=== PATIENT | female | born 1945 | race Caucasian/White ===

== ENCOUNTER → 2024-08-14 | Outpatient (CLI) | payer MEDICARE, SELFPAY ==
--- NOTE | 2024-08-14 14:30 | CT_ITS ---
PROCEDURE: EXTREMITY UPPER WITHOUT CONTRA REASON FOR EXAM: Preop planning for right shoulder replacement. TECHNIQUE: CT without intravenous contrast. Multiple axial tomographic images of the right shoulder were obtained. Sagittal and coronal reconstruction was obtained as well. COMPARISON: None. FINDINGS: Bones: No evidence of fracture. Deformity of the proximal humerus with degenerative spur formation. Joints: Marked degree of osteoarthritis of the glenohumeral joint with osteophyte formation. Decreased distance between the head of the humerus and the acromion in keeping with rotator cuff pathology. Subchondral cysts are seen in the glenoid as well as in the humeral head. Soft Tissues: There is soft tissue prominence surrounding the glenohumeral joint. This may represent either a large joint effusion versus possible synovitis. 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 Soft tissu e prominence surrounding the shoulder joint. This may represent either large joint effusion versus polycystic of itis. One or more dose reduction techniques were used (e.g., Automated exposure contr ol, adjustment of the mA and/or kV according to patient size, use of iterative reconstruction technique). Reading Location: [facility]
== END | disposition home or self-care (01) ==
LOC: CT 14:26
PROVIDERS: PCP Family Medicine; Referring Provider Student in an Organized Health Care Education/Training Program; Visit Provider Student in an Organized Health Care Education/Training Program
DX: M19.011 Primary osteoarthritis, right shoulder (principal); M25.411 Effusion, right shoulder
CPT/HCPCS: 73200

== ENCOUNTER 2024-09-04 09:12 | Day surgery (SDC) | payer MEDICARE, SELFPAY ==
--- NOTE | 2024-08-14 15:13 | EKG12_ITS ---
Test Reason : PRE OP Blood Pressure : */* mmHG Vent. Rate : 80 BPM Atrial Rate : 80 BPM P-R Int : 142 ms QRS Dur : 88 ms QT Int : 368 ms P-R-T Axes : 9 3 21 degrees QTcB Int : 424 ms Normal sinus rhythm Minimal voltage criteria for LVH, may be normal variant Anterior infarct , age undetermined Abnormal ECG Confirmed by JORGE RUBIO, HALEIGH ([id number]), editor at large GEORGE PARIKH ([id number]) on 08/15/2024 9:02:15 AM Referred By: Hernan Olmstead Confirmed By: HALEIGH PATEL MD
[2024-08-14 16:16] LABS: Absolute Lymphocyte Count 0.82 X10^3/uL (0.83-4.51); Absolute Neutrophil Count 5.5 X10^3/uL (2.0-7.7); Basophil# 0.05 X10^3/uL; Basophil% 0.6 % (0-1); Eosinophil# 0.52 X10^3/uL; Eosinophils% 6.7 % (0-5); Hematocrit 36.7 % (37-47); Hemoglobin 11.6 g/dL (12.0-15.0); Lymphocyte # 0.82 X10^3/ul (0.83-4.51); Lymphocyte % 10.6 % (19-41); Mean Corp Hgb Conc 31.6 g/dL (32-36); Mean Corpuscular Hgb 29.4 pg (27.0-32.0); Mean Corpuscular Volume 92.9 fL (81-99); Mean Platelet Vol. 8.8 fl (6.2-12.0); Monocyte# 0.85 X10^3/uL; NRBC Flagged by Analyzer 0 % (0-5); Neutrophil # 5.49 X10^3/uL (2.7-7.7); Neutrophil % 70.8 % (47-70); Platelet Count 228 K/mm3 (150-450); RBC Distribution Width CV 12.6 % (11.6-14.6); RBC Distribution Width SD 43.4 fl (35.1-43.9); Red Blood Count 3.95 M/mm3 (4.2-5.4); White Blood Count 7.8 K/mm3 (4.4-11.0)
[2024-08-14 16:48] LABS: Anion Gap 5 (5-15); BUN 18 mg/dL (7-18); BUN/Creat Ratio 28.8 RATIO (10-20); Chloride 106 mmol/L (98-107); Creatinine, Serum 0.62 mg/dL (0.55-1.02); EST Glomerular Filtration Rate 98 mL/min (>60); Est Glom Filt Rate - Afr Amer 119 mL/min (>60); Glucose 116 mg/dL (74-106); Potassium 3.9 mmol/L (3.5-5.1); Sodium Level 137 mmol/L (136-145)
[2024-08-14 17:00] LABS: Hemoglobin A1c 4.3 % (3.8-5.6)
[2024-08-14 20:07] LABS: Magnesium 2.2 mg/dL (1.6-2.6)
--- NOTE | 2024-08-15 17:36 | PAT.ANE_ITS ---
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 When Was Last Pacemaker Check QUESTION #4 FULL TEXT: You/Your Family Experience fever (hyperthermia) with Anesthesia Last Oral Intake Last Oral intake: Last Oral Intake NPO since Meds taken in AM with sips of water? 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 - combination saw operator: PONV - combination saw operator Female Yes 08/09/24 13:05 HX of Motion Sickness No 08/09/24 13:05 HX of N/V After Surgery No 08/09/24 13:05 Non-Smoker Yes 08/09/24 13:05 Duration of Surgery greater Yes 08/09/24 13:05 than 60 minutes Number of Risk Factors 3 08/09/24 13:05 PONV Score Moderate Risk 08/09/24 13:05 Respiratory Assessment Respiratory Assessment - combination saw operator: Respiratory Tract Infection Hx - combination saw operator Hx Respiratory Tract Infection No 08/09/24 13:05 STOP Sleep Apnea STOP Sleep Apnea - combination saw operator: STOP Sleep Apnea - combination saw operator Hx Hypertension No 08/09/24 13:05 Hx Sleep Apnea No 08/09/24 13:05 CPAP BIPAP Do you snore loudly (louder No 08/09/24 13:05 than talking or can be heard Do you often feel tired/ No 08/09/24 13:05 fatigued/ sleepy during daytime? Has anyone observed you stop No 08/09/24 13:05 breathing during sleep? STOP Results Negative 08/09/24 13:05 QUESTION #5 FULL TEXT : Do you snore loudly (louder than talking or can be heard through closed doors)? 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 Specify any problems Hx of Preganancy in last 3 No 08/09/24 13:05 Months Nurse Filling Out Transfusion DSCHRIBER 08/09/24 13:05 & Questions: Date: 08/09/24 08/09/24 13:05 Time: 13:13 08/09/24 13:05 Patient unable to answer at this time (ie. confused, unrespo /Reproduction History /Reproductive History - combination saw operator: /Reproductive Hx- combination saw operator Hx Now No 08/09/24 13:05 Gestational Age (in weeks): EDC: Hx Hx Para Hx Section SAB No 08/09/24 13:05 PFSH Medical History (Updated 08/09/24 @ 13:19 by Elizabeth Blair) Loss of hearing Wears dentures Post-menopausal Arthritis Non-smoker Hx of fracture of leg Home Medications ?Medication ?Instructions ?Recorded ?Last Taken ?Type calcium carbonate 600 mg PO DAILY 08/09/24 Unk nown History cyanocobalamin (vitamin B-12) 1,000 mcg PO DAILY 08/09 Unknown History 1,000 mcg tablet (Vitamin B-12) glucosamine sulfate 500 mg tablet 500 mg PO DAILY 07/13 04/05 Unknown History (Glucosamine) ibuprofen 400 mg tablet 400 mg PO Q8H 08/09/24 Unkno wn History magnesium 250 mg tablet 250 mg PO DAILY 08/09/24 Unk nown History zinc gluconate 50 mg tablet 50 mg PO DAILY 08/09/24 Un known History Allergy/AdvReac Type Severity Reaction Status Date / Time No Known Allergies Allergy Verified 08/09/24 12:59 Surgical History (Updated 08/09/24 @ 13:19 by Elizabeth Blair) History of Social History Smoking Status: Never smoker Audit: Pertinent Findings Pertinent Findings EKG Perinent findings: August 14, 2024. Normal sinus rhythm. Minimal voltage criteria for LVH. Anterior infarct age undetermined. Recommendation Anesthesia Recommendation Anesthesia recommendation: OPTIMIZED for anesthesia
[2024-09-04] VITALS (14 sets, daily range): BP systolic 129–167; BP diastolic 66–80; PULSE 62–78; RESP 16–20; TEMP 36.5–37.1; O2SAT 90–100; BMI 22.6
[2024-09-04] MEDS: Acetaminophen 500 MG Tablet 1000 MG PO (10:17)
[2024-09-04] MEDS: Gabapentin 600 MG Tablet PO (10:18)
[2024-09-04] MEDS: Lactated Ringers 1,000 ML 999 ML IV (10:19)
[2024-09-04] MEDS: Magnesium 1 GM over 15 mins IV (10:19)
[2024-09-04 10:54] LABS: Bedside Glucose 94 mg/dL (74-106)
--- NOTE | 2024-09-04 10:55 | PRE.ANES_ITS ---
ASA Classification* ASA Classification ASA Classification: 2 Assessment & Plan Anesthesia* Anesthesia Assessment Anesthesia Assessment: Discussed sedation and/or anesthesia options, risks, benefits, and alternatives with patient/parents/legal guardian/POA. Questions invited. The patient/parents/legal guardian/POA seems to understand and agrees to proceed with anesthesia plan. Reviewed the physical assessment, medical history, allergy history and patient home medications list prior to surgery/procedure/anesthetic and documented any changes. Performed airway and anesthesia risk assessments. Anesthesia Type Anesthesia Type: General and Block (preoperative RIGHT interscalene nerve block with ultrasound. discussed risks of nerve injury, phrenic paralysis, pneumothor ax, lack of efficiacy, LAST, drug rxn) History Source History Obtained from:: Patient and Chart Anesthesia Focused Assessment* Temperature: 98.8 F Pulse Rate: 78 Blood Pressure: 167/66 Respiratory Rate: 16 Pulse Ox: 100 Oxygen Delivery Method: Room Air Airway Assessment Mouth opens: 2 cm Mallampati Score: II Teeth Condition: Intact Neck Range of motion (ROM): Full ROM Focused Labs Anesthesia Preop lab: CBC WBC 7.8 K/mm3 (4.4-11.0) 08/14/24:08/14/24 RBC 3.95 M/mm3 (4.2-5.4) L 08/14/24:08/14/24 Hgb 11.6 g/dL (12.0-15.0) L 08/14/24: 5 Hct 36.7 % (37-47) L 08/14/24:08/14/24 Plt Count 228 K/mm3 (150-450) 08/14/24:08/14/24 CHEMISTRY Potassium 3.9 mmol/L (3.5-5.1) 08/14/24:08/14/24 Sodium 137 mmol/L (136-145) 08/14/24:08/14/24 Magnesium 2.2 mg/dL (1.6-2.6) 08/14/24:08/14/24 BUN 18 mg/dL (7-18) 08/14/24:08/14/24 Creatinine 0.62 mg/dL (0.55-1.02) 08/14/24:34 08/14/24 Glucose 116 mg/dL (74-106) H 08/14/24 15:34 08/14/24 POC Glucose 94 mg/dL (74-106) 09/04/24 09:51 09/04/24 COAG Pre-Assessment Diagnosis/Proposed Procedure Planned Operative Procedure(s): RIGHT REVERSE TOTAL SHOULDER ARTHROPLASTY Anesthesia History 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 When Was Last Pacemaker Check QUESTION #4 FULL TEXT: You/Your Family Experience fever (hyperthermia) with Anesthesia Last Oral Intake Last Oral intake: Last Oral Intake NPO since 07:00 09/04/24 10:07 Meds taken in AM with sips of water? 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 manager Female Yes 08/09/24 13:05 HX of Motion Sickness No 08/09/24 13:05 HX of N/V After Surgery No 08/09/24 13:05 Non-Smoker Yes 08/09/24 13:05 Duration of Surgery greater Yes 08/09/24 13:05 than 60 minutes Number of Risk Factors 3 08/09/24 13:05 PONV Score Moderate Risk 08/09/24 13:05 Height & Weight Height & Weight: Anesthesia: Height & Weight Height 5 ft 2 in 09/04/24 10:07 Weight: 56 kg 09/04/24 10:07 Body Mass Index (BMI) 22.6 09/04/24 10:07 Respiratory Assessment Respiratory Assessment - cafe manager: Respiratory Tract Infection Hx - cafe manager Hx Respiratory Tract Infection No 08/09/24 13:05 STOP Sleep Apnea STOP Sleep Apnea - cafe manager: STOP Sleep Apnea - cafe manager Hx Hypertension No 08/09/24 13:05 Hx Sleep Apnea No 08/09/24 13:05 CPAP BIPAP Do you snore loudly (louder No 08/09/24 13:05 than talking or can be heard Do you often feel tired/ No 08/09/24 13:05 fatigued/ sleepy during daytime? Has anyone observed you stop No 08/09/24 13:05 breathing during sleep? STOP Results Negative 08/09/24 13:05 QUESTION #5 FULL TEXT : Do you snore loudly (louder than talking or can be h eard through closed doors)? 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 Specify any problems Hx of Preganancy in last 3 No 08/09/24 13:05 Months Nurse Filling Out Transfusion DSCHRIBER 08/09/24 13:05 & Questions: Date: 08/09/24 08/09/24 13:05 Time: 13:13 08/09/24 13:05 Patient unable to answer at this time (ie. confused, unrespo /Reproduction History /Reproductive History - cafe manager: /Reproductive Hx- cafe manager Hx Now No 08/09/24 13:05 Gestational Age (in weeks): EDC: Hx Hx Para Hx Section SAB No 08/09/24 13:05 Active Medications Active Medications: Current Medications Generic Name Dose Route Start Last Admin Trade Name Freq PRN Reason Stop Dose Admin Acetaminophen 1,000 mg 09/04/24 13:15 09/04/24 10:17 Acetaminophen 500 Mg Tablet PO 09/04/24 13:16 1,000 mg X1 ONE Administration Dexamethasone Sodium Phosphate 10 mg 09/04/24 13:15 Dexamethasone 10 Mg/Ml Vial IV 09/04/24 13:16 X1 ONE Gabapentin 600 mg 09/04/24 13:15 09/04/24 10:18 Gabapentin 600 Mg Tablet PO 09/04/24 13:16 600 mg X1 ONE Administration Magnesium Sulfate 1 gm/ 102 mls @ 408 mls/hr 09/04/24 13:15 09/04/24 10:19 Dextrose IV 09/04/24 13:29 408 mls/hr X1 ONE Administration Lactated Ringer's 1,000 mls @ 999 mls/hr 09/04/24 13:15 09/04/24 10:19 IV 09/04/24 14:15 999 mls/hr .Q1H1M JANET Administration Cefazolin Sodium 2 gm/ N/A 20 mls @ 400 mls/hr 09/04/24 13:15 IV 09/04/24 13:17 PREOP ONE Tranexamic Acid 1,000 mg/ 110 mls @ 660 mls/hr 09/04/24 13:15 Sodium Chloride IV 09/04/24 13:24 X1 ONE Insulin Human Lispro 1 - 6 unit 09/04/24 13:15 Insulin Lispro 100 Unit/Ml Insuln.Pen SC 09/04/24 23:59 Q4H PRN PRN BG>/= 180, SEE PROTOCOL Protocol PFSH Medical History Loss of hearing Wears dentures Post-menopausal Arthritis Non-smoker Hx of fracture of leg Home Medications ?Medication ?Instructions ?Recorded ?Last Taken ?Type calcium carbonate 600 mg PO DAILY 08/09/24 Unk nown History cyanocobalamin (vitamin B-12) 1,000 mcg PO DAILY 08/09 Unknown History 1,000 mcg tablet (Vitamin B-12) glucosamine sulfate 500 mg tablet 500 mg PO DAILY 07/13 04/05 Unknown History (Glucosamine) ibuprofen 400 mg tablet 400 mg PO Q8H 08/09/24 Unkno wn History magnesium 250 mg tablet 250 mg PO DAILY 08/09/24 Unk nown History zinc gluconate 50 mg tablet 50 mg PO DAILY 08/09/24 Un known History Allergy/AdvReac Type Severity Reaction Status Date / Time No Known Allergies Allergy Verified 09/04/24 10:05 Surgical History (Updated 08/09/24 @ 13:19 by Elizabeth Schriber) History of Social History Smoking Status: Never smoker Review of Systems (Anesthesia) ROS Narrative System reviewed and no additional complaints, except as documented. Physical Exam Const alert and oriented x3 HEENT dentition normal Neck full ROM Resp normal respiratory effort Neuro oriented x3 and moves all extremities
--- NOTE | 2024-09-04 11:30 | SHO_PTH ---
PATIENT: KRISTOPHER MERA LOC: [facility] [place][id number] AGE/SX: 78/F ROOM: RE09/04/[address]: Dr. Hernan Olmstead DO : 1945 BED: DIS: 09/04/2024 SPEC #: [id number] RECD: 09/04/24 14:46 STATUS: GIOVANNI RETyler #: [id number] LORENA: 09/04/24 11:[address]: Hernan Olmstead DEPT: SURGICAL PATHOLOGY RECD BY: Irlanda Marshall ENTERED: 09/05/24 07:38 SP TYPE: HUMERUS OTHR DR: Dr. Hemal Lopez MD Tissues: Humerus, NOS Procedures: Decalcification bone/plaque Surgery Specimen Level IV HEADER OPERATION: Total shoulder replacement, reverse PRE-OP DIAGNOSIS: Primary osteoarthritis right shoulder, effusion, right shoulder TISSUE SUBMITTED: Right humeral head MICROSCOPIC DIAGNOSIS Bone and tissue right shoulder, total shoulder replacement/resection: Humeral head with degenerative osteoarthritic changes. TAYO. 09/07/2024 MICROSCOPIC DESCRIPTION Slides are reviewed. GROSS DESCRIPTION Received is one container labeled with the patient's name and designated bone and soft tissue. The specimen consists of a humeral head measuring 6 x 4 x 2 cm. The articular surface shows areas of erosion, eburnation and osteophyte formation. No soft tissue is identified. Equip Tech sections are submitted in one cassette after decalcification. / SJ: 09/05/2024 TC:5 CPT: 63678, 18333
[2024-09-04] MEDS: Cefazolin 2 GM in Syringe 10 ML IV (12:12)
[2024-09-04] MEDS: TXA 1000mg in NS100 100ml (IVPB at Incision) 660 MG IV (12:14)
[2024-09-04] MEDS: dexAMETHasone 10 MG/ML Vial IV (12:45)
--- NOTE | 2024-09-04 13:14 | RAD_ITS ---
PROCEDURE: SHOULDER MIN 2 VIEWS REASON FOR EXAM: Status post right reverse shoulder replacement. TECHNIQUE: Two views of the right shoulder were obtained. COMPARISON: None. FINDINGS: RIGHT SHOULDER: The patient is status post right reverse shoulder replacement. Normal alignment of the acromioclavicular and glenohumeral joints. Postoperative soft tissue changes. RAD/Shoulder min 2 Views IMPRESSION: Status post right reverse shoulder replacement. There is good alignment. Postoperative soft tissue changes. Reading Location: [id number]
--- NOTE | 2024-09-04 13:43 | PCM.POST.ANE ---
Anesthesia: Postop Eval I Current Vital Signs Temperature: 97.7 F Pulse Rate: 74 Blood Pressure: 150/73 Respiratory Rate: 20 Pulse Ox: 94 Oxygen Delivery Method: Nasal Cannula Oxygen Flow Rate (L/min): 4 Assessment Airway patent: Yes Spontaneous unlabored respirations: Yes Mental status: Calm nausea: No Vomiting: No Anesthesia Complication: No Fluid Hydration Crystalloid volume administer (ml): 1,000 Total IV fluid infused: 1,000 Progress Note Anesthesia document: Postop Eval 1 completed: Yes
--- NOTE | 2024-09-04 15:01 | OP.PCM_ITS ---
Operative Report (Standard) Operative Information Date of Procedure: 09/04/24 Pre-Operative Diagnosis: Right shoulder rotator cuff tear arthropathy Post-Operative Diagnosis: Right shoulder rotator cuff tear arthropathy Surgery/Procedure Performed: Right reverse total shoulder arthroplasty alumni relations coordinator: Yes Pest Control Applicator: Shannon Harrington Tasks completed by marketing communications assistant: Opening & closing, Implanting device, Hemostasis: Electrocautery and Retracting Type of Anesthesia: General/Regional RN Documented Start/Stop Times: Operation Date: 09/04/24 11:30 Case Time Into Pre-Op 09/04/24 09:20 Out of Pre-Op 09/04/24 11:49 Anesthesia Start 09/04/24 11:51 Into Room 09/04/24 11:51 Procedure Start 09/04/24 12:20 Procedure End 09/04/24 13:23 Anesthesia End 09/04/24 13:30 Out of Room 09/04/24 13:30 Into Recovery 09/04/24 13:34 Out of Recovery 09/04/24 14:40 Into Phase II Recovery 09/04/24 14:41 Procedure Start Time: 12:20 Procedure Stop Time: 13:23 Select all DRAINS/GRAFTS/IMPLANTS that apply: Implanted device Implanted device details: Tornier Aequalis PerFORM+ reversed baseplate 25 mm diameter full wedge, standard glenosphere cobalt chrome 39 mm diameter, Tornier perform inlay stem size #1 plus, + 3 mm retentive size number 1 39 mm diameter polyethylene insert, short central post and peripheral screws x4. Estimated Blood Loss: 50 cc Specimen collected: Yes Description of specimen(s) removed: Right humeral head Description of surgery: Patient arrived to [facility] morning of the procedure and was greeted by the same day surgery staff. Prior to his procedure, I greeted the patient in the preoperative holding area I identified the patient by name, record number, and date of . Informed consent was confirmed. The operative extremity was marked. All questions were answered to patient satisfaction. An interscalene block was administered prior to procedure by anesthesia staff for postoperative and intraoperative analgesia. At time of his procedure, patient was brought to the operative suite and positioned supine on a standard table with a beachchair attachment. General anesthesia was induced after all bony prominences were well-padded. Endotracheal tube was placed. After adequate anesthesia and securing the tube, we prepared the patient to be positioned in the beachchair position. A well- padded medical director/head team physician was applied. The nonoperative extremity was placed in a well arm dolan. He was then brought into the beachchair position after we confirmed an appropriate blood pressure. We then spun the bed 45 degrees. The operative extremity was then prepared. In the butterfly wing of the bed was removed and a well-padded torso strap was applied to secure the patient to the bed. The operative extremity was now free. We then prepped and draped the right upper extremity in normal, sterile orthopedic fashion. We then performed a timeout with all parties in attendance in agreement with the side, site, and operation be performed. 2 g Ancef was administered prior to incision by anesthesia staff, as well as 1 g TXA IV. No concerns were voiced and we elected to proceed. I first marked a standard deltopectoral incision just lateral to the coracoid process in line with the long axis of the humerus. Skin was sharply incised with 10 blade scalpel. I then dissected bluntly through the subcutaneous layers and found the fat stripe between the deltoid and pectoralis major. The cephalic vein was then identified and protected. It was retracted laterally with the del toid. I then bluntly dissected underneath the deltoid with a Vega elevator. Elsy retractor was placed. The upper 1 cm of the pectoralis major was released. While the biceps tendon was chronically ruptured and was not seen in the surgical field. This identified the lesser and greater tuberosities. The supraspinatus was completely torn and retracted with an exposed greater tuberosity. I then performed a subscapularis peel. I tagged the subscapularis for possible repair later with a tagging suture. Humeral head was then dislocated anteriorly. Appropriate access to the humeral head was confirmed. I then subluxed the humeral head posteriorly with a Fukuda retractor placed around the posterior lip of the glenoid. Inferior capsule was tension. I was able to palpate the axillary nerve. Inferior capsule was then released to the 4 o'clock position of the glenoid face. 3 sided subscapularis release was performed with Bovie cautery. I then remove the Fukuda retractor and redislocated the shoulder anteriorly. I then made a anatomic neck cut of the cartilaginous surface of the humeral head. Sizing plate for a size # 1 stem was utilized to determine appropriate reaming size. A central pin was placed engaging the lateral cortex of the humerus. A size # 1 reamer was used to ream the humeral metaphysis and prepare for the inlay stem. A canal finding reamer was utilized prior to sequential broaching to a size # 1 short stem with excellent rotational and axial purchase in the humerus. I remove the broach handle left the size # [address] I then subluxed the humerus posterior to the glenoid. I then placed retractors around the posterior and anterior glenoid to expose the glenoid. Glenoid labrum was removed with Bovie cautery protecting the axillary nerve. We then used the augmented guide from Estefanía to position our centering pin, exiting approximately 25 mm from the joint surface along the anterior scapula. Guide was removed and pin was analyzed and compared to preoperative planning. It appeared to be in appropriate position. The Nautilus shaped reamer was then placed over top of the centering pin. I then prepared the glenoid with the augmented reamer in standard fashion. We then removed the reamer and used the cannulated drill for the short central post. Post and baseplate was assembled on the back table. We then inserted the baseplate and central post the assembled baseplate to an appropriate depth with good press-fit purchase. A [place] was used to confirm depth. Cortical screws then were placed in the peripheral holes with good purchase. The baseplate had excellent purchase and the entire scapula would rotate with rotation of the baseplate. We then impacted the 39 mm glenosphere with a standard eccentricity and tightened the locking screw mechanism. We then removed retractors and turned our attention back to the humerus. I placed a standard +3 millimeters retentive polyethylene insert. I then reduced the shoulder. There was excellent range of motion and stability in all planes of motion. We selected this as our final size. We removed trials from the humerus after final dislocation. I copiously irrigated the canal. Broach was placed on hand and then impacted to an appropriate depth. Final + 3 mm retentive polyethylene insert was placed. Final reduction was then performed. The subscapularis was then identified with a tagging suture. Repair would have been likely under undue tension and likely failed. I elected to not perform a subscapularis repair. We then copiously irrigated the wound with sterile Betadine and normal saline solution. We reapproximated the interval with 0 Vicryl suture. Subcutaneous layers were reapproximated with 2 -0 Vicryl suture. Skin was finally running V- Loc 3-0 Monocryl suture and Dermabond. A sterile silver Mepilex dressing was applied. Patient was then placed in an ultra sling. Patient tolerated procedure well without complication. She was positioned back in the supine position extubated in the operative suite. She was transferred to the [place] and subsequently to PACU in stable condition. Need for skilled senior underwriting assistant: Shannon Harrington PA-C was critical to the outcome of the case. During the course of the procedure the physician senior underwriting assistant played a vital role. Her intimate knowledge of my steps in the procedure aided in safe and expedient completion of the procedure. The PA played a vital role in positioning particularly in obtaining the appropriate positioning. The PA was also vital in the retraction of soft tissues during the exposure and protecting vital structures. The PA was also vital and protecting soft tissues during times of bony cuts. She also played a vital role in closure with my direct supervision. The PA was also important during reduction and dislocation of the joint and trials intraoperatively. Intraoperative medications: 2 g Ancef IV, 1 g TXA IV x2 Post Operative Plan: Plan for outpatient same-day surgery after meeting same-day surgery criteria. Weightbearing: Nonweightbearing right upper extremity, okay for pendulums. Range of motion of wrist elbow and hand as tolerated. Antibiotics: 2 g Ancef IV prior to incision, 24 hours IV antibiotics postoperatively DVT Prophylaxis: Aspirin enteric-coated 81 mg twice daily starting tomorrow [place]: None Dressing: Maintain silver dressing x5 days. Okay to shower dressing on started on day 4 X-Rays: 2 weeks postop in the office Pain Medication: Oxycodone Rx upon discharge Follow-up: 2 weeks post-operatively with me in the office Surgical Findings: Severe rotator cuff tear arthropathy. Stable shoulder following final reduction. Complications Complications: No Admit VTE Documentation VTE Present on Admission: No VTE Mechan Device Prophylaxis: SCD's VTE Pharm Prophylaxis ordered?: Yes
--- NOTE | 2024-09-04 16:24 | POSTOPAN2_ITS ---
Anesthesia Postop Eval I Sum Postop Eval Completion status Anesthesia document: Postop Eval 1 completed: Yes Anesthesia Postop Eval I Summary Anesthesia Postop Eval I Summary: Anesthesia Postop Eval I: Assessment Summary Airway patent Yes 09/04/24 13:44 AIRCRAFT STRUCTURAL [email or web address] Spontaneous unlabored Yes 09/04/24 13:44 AIRCRAFT STRUCTURAL [email or web address] respirations Mental status Calm 09/04/24 13:44 AIRCRAFT STRUCTURAL [email or web address] nausea No 09/04/24 13:44 AIRCRAFT STRUCTURAL [email or web address] Vomiting No 09/04/24 13:44 AIRCRAFT [email or web address] [email or web address] Anesthesia Postop Eval I: Fluid Summary Crystalloid volume administer 1,000 09/04/24 13:44 AIRCRAFT [email or web address] [email or web address] (ml) Colloids volume administered ( ml) Blood Product volume administered (ml) Total IV fluid infused 1,000 09/04/24 13:44 AIRCRAFT [email or web address] Anesthesia Postop Eval I: Summary Notes Anesthesia Complication No 09/04/24 13:44 AIRCRAFT [email or web address] Anesthesia Complication Comment: Post-operative progress note Anesthesia: Postop Eval II Evaluation Mental status: Awake and Calm Pain Level: 4 nausea: No Vomiting: No Complications Anesthesia Complication: No
--- NOTE | 2024-09-04 16:24 | PCM.POSTANE2 ---
Anesthesia Postop Eval I Sum Postop Eval Completion status Anesthesia document: Postop Eval 1 completed: Yes Anesthesia Postop Eval I Summary Anesthesia Postop Eval I Summary: Anesthesia Postop Eval I: Assessment Summary Airway patent Yes 09/04/24 13:44 CORPORATE PHYSICAL SECURITY [email or web address] Spontaneous unlabored Yes 09/04/24 13:44 CORPORATE PHYSICAL SECURITY [email or web address] respirations Mental status Calm 09/04/24 13:44 CORPORATE PHYSICAL SECURITY [email or web address] nausea No 09/04/24 13:44 CORPORATE PHYSICAL SECURITY [email or web address] Vomiting No 09/04/24 13:44 CORPORATE PHYSICAL SECURITY [email or web address] Anesthesia Postop Eval I: Fluid Summary Crystalloid volume administer 1,000 09/04/24 13:44 CORPORATE PHYSICAL SECURITY [email or web address] (ml) Colloids volume administered ( ml) Blood Product volume administered (ml) Total IV fluid infused 1,000 09/04/24 13:44 CORPORATE PHYSICAL SECURITY [email or web address] Anesthesia Postop Eval I: Summary Notes Anesthesia Complication No 09/04/24 13:44 CORPORATE PHYSICAL SECURITY [email or web address].[email or web address] Anesthesia Complication Comment: Post-operative progress note Anesthesia: Postop Eval II Evaluation Mental status: Awake and Calm Pain Level: 4 nausea: No Vomiting: No Complications Anesthesia Complication: No
[2024-09-04] MEDS: Cefazolin 1 GM/50 ML BAG IV (16:57)
== END 2024-09-04 17:59 | disposition home or self-care (01) ==
LOC: SDC 09:13 → AC 09:16
PROVIDERS: Anesthesiology Pain Medicine; PCP Family Medicine; Referring Provider Student in an Organized Health Care Education/Training Program; Visit Provider Student in an Organized Health Care Education/Training Program
PROC: (CPT 23472; principal; 2024-09-04 11:00)
DX: M75.101 Unspecified rotator cuff tear or rupture of right shoulder, not specified as traumatic (principal); M19.011 Primary osteoarthritis, right shoulder
CPT/HCPCS: 23472; 01638; 64415; 36415; 73030; 80048; 82962; 83036; 83735; 85025; 87081; 88305; 88311; 93005; C1713; C1776; J2405; J3475